=== PATIENT | male | born 1975 | race African-American/Black ===

== ENCOUNTER 2019-09-18 12:17 | Emergency (ER) | payer OTHER ==
[~2019-09-18] VITALS: Ht 177.8 cm; Wt 99.8 kg
[2019-09-18] MEDS ORDERED: COZAAR 50 MG TA50 MG PO (14:33)
[2019-09-18 14:48] VITALS: BP 144/84
== END 2019-09-18 15:06 ==
LOC: ER 12:17
DX: T78.3XXA Angioneurotic edema, initial encounter (principal); Z88.8 Allergy status to other drugs, medicaments and biological substances